=== PATIENT | male | born 1980 | race Two or more races ===

== ENCOUNTER 2016-09-03 11:47 | Emergency (ER) | payer BC ==
[2016-09-03 12:41] VITALS: BP 124/75; PULSE 77; RESP 18; TEMP 98.1
[2016-09-03] MEDS ORDERED: KETOROLAC 60 MG/2 ML VIAL IM STA (13:09)
[2016-09-03] MEDS ORDERED: ORPHENADRINE 30 MG/ML 2 ML VIAL IM STA (13:09)
--- NOTE | 2016-09-03 13:16 | ED ---
Extremity Problem HPI - General Chief complaint: Extremity Problem,Nontraumatic Stated complaint: shoulder pain Time Seen by Provider: 09/03/16 12:56 Source: patient, RN notes reviewed Mode of arrival: ambulatory Limitations: no limitations - History of Present Illness Initial comments: 36-year-old male presents to the emergency 5 chief complaint of left shoulder pain. Patient states he has just his pain of his left shoulder that radiates of his neck tender to touch tender to movement. He states Motrin with minimal relief. Patient states he is constantly lifting and moving at work. Patient states if he moves his neck around his increased pain. Patient states he was concerned due to his symptoms were thought that he should be evaluated. Patient denies any recent fever, chills, shortness of breath, chest pain, back pain, abdominal pain, nausea vomiting, numbness or tingling, dysuria or hematuria, constipation or diarrhea, headaches or visual changes, or any other current symptoms. - Related Data Previous Rx's Medication Instructions Recorded Acetaminophen-Codeine 300-30mg 1 tab PO Q6H PRN #20 tablet 11/16/14 [Tylenol #3] Ibuprofen [Motrin] 600 mg PO Q8HR PRN #30 tab 11/16/14 Ibuprofen [Motrin] 600 mg PO Q6HR PRN #20 tab 09/03/16 Orphenadrine [Norflex] 100 mg PO Q12H #10 tablet.er 09/03/16 Allergies Allergy/AdvReac Type Severity Reaction Status Date / Time No Known Allergies Allergy Verified 09/03/16 12:41 Review of Systems ROS Statement: Those systems with pertinent positive or pertinent negative responses have been documented in the HPI. ROS Other: All systems not noted in ROS Statement are negative. Past Medical History Past Medical History: No Reported History History of Any Multi-Drug Resistant Organisms: None Reported Past Surgical History: No Surgical Hx Reported Past Psychological History: No Psychological Hx Reported Smoking Status: Former smoker Past Alcohol Use History: Occasional Past Drug Use History: None Reported General Exam - General Exam Comments Initial Comments: General: The patient is awake and alert, in no distress, and does not appear acutely ill. Neck: The neck is supple, there is no tenderness. Cardiovascular: There is a regular rate and rhythm. No murmur, rub or gallop is appreciated. Respiratory: Lungs are clear to auscultation, respirations are non-labored, breath sounds are equal. No wheezes, stridor, rales, or rhonchi. Musculoskeletal: Patient has tenderness along the lateral aspect of the neck. Patient tenderness along the left trapezius. Full range of motion left shoulder with negative drop arm test. full range of Motion of left elbow. Neurological: CN II-XII intact, There are no obvious motor or sensory deficits. Coordination appears grossly intact. Speech is normal. Skin: Skin is warm and dry and no rashes or lesions are noted. Psychiatric: Normal mood and affect. Limitations: no limitations Course Vital Signs 09/03/16 12:39 Temperature 98.1 F Pulse Rate 77 Respiratory 18 Rate Blood Pressure 124/75 O2 Sat by Pulse 99 Oximetry Medical Decision Making - Medical Decision Making 36-year-old male presents for what appears to be trapezius strain. Patient's chest x-ray does appear to be negative. Some discussed on compresses we discussed using a muscle x-rays in the anti-inflammatory as prescribed. Discussed follow-up with [facility] for any additional or changes in symptoms. Discussed return parameters all patient's questions. He stated he understood and he is nearing plan. He will be discharged home. - Radiology Data Radiology results: report reviewed, image reviewed Disposition Clinical Impression: Trapezius muscle strain Disposition: HOME SELF-CARE Condition: Stable Instructions: Muscle Strain (ED) Additional Instructions: Please use medication as discussed. Please follow up with family doctor if symptoms have not improved over the next two days. Please return to the emergency room if your symptoms increase or worsen or for any other concerns. Prescriptions: Ibuprofen [Motrin] 600 mg PO Q6HR PRN #20 tab PRN Reason: Pain Orphenadrine [Norflex] 100 mg PO Q12H #10 tablet.er Referrals: Eddie Craft MD [Primary Care Provider] - 1-2 days Jamar Gauthier MD [Medical Doctor] - 1-2 days Time of Disposition: 13:30
--- NOTE | 2016-09-03 13:23 | XR ---
EXAMINATION TYPE: XR shoulder complete LT DATE OF EXAM: 09/03/2016 1:17 PM COMPARISON: NONE HISTORY: Pain TECHNIQUE: Shoulder examined in 3 FINDINGS: The humeral head articulates with the glenoid. The acromio-clavicular junction is normal. No acute fractures or dislocations are evident. A follow up study can be performed 7-10 days from acute trauma for continued pain. IMPRESSION: 1. Normal Shoulder
== END 2016-09-03 13:46 | disposition home or self-care (01) ==
LOC: EC 11:47
DX: S29.012A Strain of muscle and tendon of back wall of thorax, initial encounter (principal); Z87.891 Personal history of nicotine dependence; X50.0XXA Overexertion from strenuous movement or load, initial encounter; Y93.89 Activity, other specified
CPT/HCPCS: 73030; 99283; 96372 ×2; J2360; J1885